=== PATIENT | female | born 1960 | race Caucasian/White ===

== ENCOUNTER 2017-01-10 08:42 | Outpatient (CLI) | payer BC ==
[2017-01-10 14:07] LABS: INR 0.9 (0.8-1.2); PT - PROTHROMBIN TIME 10.4 secs (9.9-12.6)
== END 2017-01-10 08:43 | disposition home or self-care (01) ==
LOC: LAB.WCP 08:42
PROVIDERS: ATTEND Family Medicine
DX: R79.89 Other specified abnormal findings of blood chemistry (principal)
CPT/HCPCS: 36415; 80074; 85610

== ENCOUNTER 2017-01-15 08:04 | Outpatient (CLI) | payer BC ==
--- NOTE | 2017-01-15 14:30 | Ultrasound Report ---
RIGHT UPPER QUADRANT ULTRASOUND: 01/15/2017 CLINICAL INDICATION: Elevated LFTs. TECHNIQUE: Real-time scanning was performed with credit and collections representative static images obtained. FINDINGS: The liver measures 13.7 cm. Hepatic echogenicity is increased, compatible with fatty infi ltration. No focal parenchymal lesion or intrahepatic biliary dilatation is present. The common petra e duct measures 4 mm. The gallbladder is normal. The right kidney measures 8.8 cm, and demonstrates no hydronephrosis. No free fluid is present. IMPRESSION: FATTY INFILTRATION OF THE LIVER. NO EVIDENCE OF CHOLELITHIASIS OR BILIARY OBSTRUCTION. JOB #: [id number] EXT JOB #:[id number]
== END 2017-01-15 08:05 | disposition home or self-care (01) ==
LOC: DI 08:04
PROVIDERS: ATTEND Family Medicine
DX: R79.89 Other specified abnormal findings of blood chemistry (principal); K76.0 Fatty (change of) liver, not elsewhere classified
CPT/HCPCS: 76705

== ENCOUNTER 2017-01-17 11:21 | Outpatient (CLI) | payer BC ==
--- NOTE | 2017-01-29 16:52 | Mammography Report ---
DIGITAL SCREENING MAMMOGRAM: 01/17/2017 CLINICAL INDICATION: A 56-year-old with bilateral implants, for screening. COMPARISON: The patient reports having had previous mammograms in [place], but no films are availa ble for direct comparison. If they become available, an addendum will be issued. Otherwise, this will serve as a new baseline. TECHNIQUE: Routine CC and MLO projections were obtained of the breasts. Bilateral implant-displaced views. FINDINGS: The breasts demonstrate scattered fibroglandular densities bilaterally. Punctate, typicall y benign calcifications are present. Bilateral subpectoral implants are present. No suspicious masses , clustered microcalcifications, or regions of architectural distortion are identified. IMPRESSION: BENIGN FINDINGS. RECOMMENDATION: ROUTINE ANNUAL SCREENING UNLESS OTHERWISE CLINICALLY INDICATED. BIRADS CATEGORY 2-BENIGN FINDINGS. STANDARD QUALIFYING STATEMENTS 1. This examination was reviewed with the aid of Computer-Aided Detection (CAD). 2. A negative or benign imaging report should not delay biopsy if clinically suspicious findings are present. Consider surgical consultation if warranted. More than 5% of cancers are not identified by i maging. 3. Dense breasts may obscure an underlying neoplasm. JOB #: [id number] EXT JOB #:[id number]
== END 2017-01-17 11:22 | disposition home or self-care (01) ==
LOC: DI.N 11:21
PROVIDERS: ATTEND Family Medicine
DX: Z12.31 Encounter for screening mammogram for malignant neoplasm of breast (principal); Z98.82 Breast implant status
CPT/HCPCS: 77067

== ENCOUNTER 2017-06-19 18:28 | Emergency (ER) | payer BC ==
[2017-06-19] MEDS ORDERED: IPRATROPIUM/ALBUTEROL 3 ML NEB INH STA (18:38)
--- NOTE | 2017-06-19 19:36 | ED Physician Documentation ---
PD HPI URI - Stated complaint Stated Complaint: SOA - Chief complaint Chief Complaint: Resp - History obtained from History obtained from: Patient - History of Present Illness Timing duration: Days Timing details: Gradual onset, Still present Associated symptoms: Chills, Dry cough, Dyspnea. No: Fever, Hemoptysis, Chest pain, NVD Contributing factors: COPD / asthma. No: Sick contact, Travel, Immunocompromised Similar symptoms before: Diagnosis (asthma with URIs.) Recently seen: Emergency Dept Review of Systems Constitutional: reports: Myalgias. denies: Fever Nose: reports: Rhinorrhea / runny nose, Congestion Throat: denies: Sore throat Cardiac: denies: Chest pain / pressure Respiratory: reports: Cough GI: reports: Nausea. denies: Vomiting, Diarrhea PD PAST MEDICAL HISTORY - Past Medical History Past Medical History: Yes Cardiovascular: Hypertension Respiratory: Asthma - Present Medications Home Medications: Ambulatory Orders Medication Instructions Recorded Confirmed Albuterol Sulfate [Proair Hfa 06/19/17 Inhaler] Atenolol 50 mg PO DAILY 06/19/17 Fluticasone Propionate [Flovent 06/19/17 Diskus] Furosemide [Lasix] 20 mg PO DAILY 06/19/17 PARoxetine [Paxil] 12.5 mg PO DAILY 06/19/17 methylPREDNISolone [Medrol] 06/19/17 - Allergies Allergies/Adverse Reactions: Allergies Allergy/AdvReac Type Severity Reaction Status Date / Time No Known Drug Allergies Allergy Verified 06/19/17 18:44 - Social History Does the pt smoke?: No Smoking Status: Never smoker PD ED PE NORMAL - Vitals Vital signs reviewed: Yes - General General: Alert and oriented X 3, No acute distress, Well developed/nourished - HEENT HEENT: Ears normal, Pharynx benign - Neck Neck: Supple, no meningeal sign, No adenopathy - Cardiac Cardiac: RRR, No murmur - Respiratory Respiratory: No respiratory distress. No: Clear bilaterally (diffuse exp wheezing) - Abdomen Abdomen: Soft, Non tender - Back Back: No CVA TTP - Derm Derm: Normal color, Warm and dry Results - Vitals Vitals: Oxygen O2 Source Room air PD MEDICAL DECISION MAKING - ED course Complexity details: reviewed old records, considered differential, d/w patient Departure - Departure Disposition: 01 Home, Self Care Clinical Impression: Wheezing Upper respiratory infection Qualifiers: URI type: unspecified URI Qualified Code(s): J06.9 - Acute upper respiratory infection, unspecified Condition: Stable Record reviewed to determine appropriate education?: Yes Instructions: ED URI Viral W Wheezing Follow-Up: Prashanth Lala MD [Primary Care Provider] - Comments: Continue the current albuterol inhaler but use the spacer with it and increase to 3 or 4 puffs at a time as needed. Do this 4 times a day for the next week. Add extra doses as needed. Continue the steroids that you have been prescribed. The cough medicine as needed. Recheck if not improving over the next few days. Discharge Date/Time: 06/19/17 20:33
[2017-06-19] MEDS ORDERED: DEXAMETHASONE 10 MG/ML VIAL PO STA (19:56)
[2017-06-19] MEDS ORDERED: CHERRY SYRUP 10 ML UDC PO ONE (20:24)
[2017-06-19 20:33] VITALS: BP 130/92
== END 2017-06-19 20:33 | disposition home or self-care (01) ==
LOC: ED 18:28
DX: J06.9 Acute upper respiratory infection, unspecified (principal); R06.2 Wheezing; I10 Essential (primary) hypertension; J45.909 Unspecified asthma, uncomplicated
CPT/HCPCS: 94640; 94664; 99283; A9270; J7620